=== PATIENT | male | born 1975 | race Caucasian/White ===

== ENCOUNTER 2018-11-06 02:39 | Emergency (ER) | payer MEDICAID ==
[~2018-11-06] VITALS: Ht 185.4 cm; Wt 88.0 kg
[~2018-11-06 02:39] MED LIST: DIAZ-351 PO; ONDA4TAB12 PO
[2018-11-06 02:49] VITALS: BP 127/88
[2018-11-06] MEDS ORDERED: acetaminophen 325mg tablet PO ONE (03:10)
[2018-11-06] MEDS ORDERED: ibuprofen tablet 400 MG TABLET PO ONE (03:10)
[2018-11-06] MEDS ORDERED: sulfamethoxazole/trimethoprim DS (800/160mg) tablet PO ONE (03:10)
[2018-11-06] MEDS ORDERED: SULF1TAB49 PO (04:17)
== END 2018-11-06 04:23 | disposition home or self-care (01) ==
LOC: ER 02:40
DX: S80.811A Abrasion, right lower leg, initial encounter (principal); F12.90 Cannabis use, unspecified, uncomplicated; W22.8XXA Striking against or struck by other objects, initial encounter; Y93.89 Activity, other specified; Y92.89 Other specified places as the place of occurrence of the external cause; Y99.9 Unspecified external cause status
CPT/HCPCS: 73590; 99284

== ENCOUNTER 2019-07-07 23:16 | Emergency (ER) | payer MEDICAID ==
[~2019-07-07] VITALS: Ht 185.4 cm; Wt 100.0 kg
[2019-07-07 23:17] VITALS: BP 156/92
[2019-07-07] MEDS ORDERED: CEPH250T PO (23:31)
== END 2019-07-07 23:36 | disposition home or self-care (01) ==
LOC: ER 23:16
DX: L03.113 Cellulitis of right upper limb (principal); F12.90 Cannabis use, unspecified, uncomplicated; Z79.2 Long term (current) use of antibiotics; Z79.899 Other long term (current) drug therapy
CPT/HCPCS: 99283

== ENCOUNTER 2020-10-18 17:42 | Emergency (ER) | payer MEDICAID ==
[~2020-10-18] VITALS: Ht 185.4 cm; Wt 101.5 kg
[2020-10-18] MEDS ORDERED: SULF1TAB49 PO (18:46)
[2020-10-18] MEDS ORDERED: CEPH-585 PO (18:46)
[2020-10-18] MEDS ORDERED: sulfamethoxazole/trimethoprim DS (800/160mg) tablet PO ONE (18:50)
[2020-10-18 19:13] VITALS: BP 119/64
== END 2020-10-18 19:15 | disposition home or self-care (01) ==
LOC: ER 17:43
DX: L02.413 Cutaneous abscess of right upper limb (principal); F12.90 Cannabis use, unspecified, uncomplicated; Z72.89 Other problems related to lifestyle; Z79.899 Other long term (current) drug therapy
CPT/HCPCS: 73110; 99283

== ENCOUNTER 2021-01-08 09:17 | Emergency (ER) | payer MEDICAID ==
[~2021-01-08] VITALS: Ht 185.4 cm; Wt 102.0 kg
[~2021-01-08 09:17] MED LIST changes: +CEPH-585 PO
[2021-01-08 09:33] VITALS: BP 116/71
[2021-01-08] MEDS ORDERED: LIDOcaine 1% W/epiNEPHrine 1:100,000 20ml vial SQ ONE (11:45)
--- NOTE | 2021-01-08 13:05 | NUR ---
dr hinojosa at [facility] doing the lac repair.
== END 2021-01-08 13:51 | disposition home or self-care (01) ==
LOC: ER 09:18
DX: S71.112A Laceration without foreign body, left thigh, initial encounter (principal); F12.90 Cannabis use, unspecified, uncomplicated; Z72.89 Other problems related to lifestyle; Z90.5 Acquired absence of kidney; Z79.2 Long term (current) use of antibiotics; Z79.899 Other long term (current) drug therapy; W26.0XXA Contact with knife, initial encounter; Y93.89 Activity, other specified; Y92.89 Other specified places as the place of occurrence of the external cause; Y99.8 Other external cause status
CPT/HCPCS: 12001; 73552; 99283

== ENCOUNTER 2021-03-16 19:00 | Emergency (ER) | payer MEDICAID ==
[~2021-03-16] VITALS: Ht 185.4 cm; Wt 104.5 kg
--- NOTE | 2021-03-16 19:22 | NUR ---
PT SEEN AND ASSESSED PRIOR TO NURSE SIGN UP . AWAITING FOR VASULAR STUDY IN T2 . LABS DRAWN
[2021-03-16 19:38] LABS: BASOPHILS % (AUTO) 0.4 % (0-1); MEAN CORPUSCULAR VOLUME 88.4 FL (78-98)
[2021-03-16 19:40] LABS: EOSINOPHILS % (AUTO) 0.3 % (0-6); HEMOGLOBIN 16.2 g/dl (14.0-17.9); LYMPHOCYTES # (AUTO) 1.2 X10'3 (1.1-4.8); LYMPHOCYTES % (AUTO) 19.4 % (21-51); MEAN CORPUSCULAR HEMOGLOBIN 29.8 PG (27.0-31.0); MEAN CORPUSCULAR HGB CONC 33.8 g/dL (33.0-36.5); MONOCYTES % (AUTO) 16.4 % (2-12); NEUTROPHILS % (AUTO) 63.5 % (42-75); PLATELET COUNT 226 X10'3 (140-440); RED BLOOD COUNT 5.43 X10'6 (4.70-6.10); RED CELL DISTRIBUTION WIDTH 13.4 % (11.5-14.5); WHITE BLOOD COUNT 6.4 X10'3 (4.5-11.0)
--- NOTE | 2021-03-16 19:40 | NUR ---
EMT SNET TO ROOM BY CHRNATHAN TO HAVE PT CHANGE INTO A GOWN
[2021-03-16 19:43] LABS: ALANINE AMINOTRANSFERASE 32 U/L (12-78); ALBUMIN 3.7 G/DL (3.4-5.0); ALBUMIN/GLOBULIN RATIO 0.8 (1.1-1.5); ALKALINE PHOSPHATASE 96 IU/L (46-116); ANION GAP 8 (8-16); ASPARTATE AMINO TRANSFERASE 27 U/L (10-37); BILIRUBIN,TOTAL 0.3 MG/DL (0.1-1.0); BLOOD UREA NITROGEN 11 MG/DL (7-18); BUN/CREATININE RATIO 6.9 (5.4-32.0); CALCIUM 8.3 MG/DL (8.5-10.1); CHLORIDE 105 MMOL/L (99-107); CREATININE 1.59 MG/DL (0.60-1.10); GLUCOSE 94 MG/DL (70-104); SODIUM 140 MMOL/L (135-145); TOTAL CARBON DIOXIDE 27.5 MMOL/L (24-32); TOTAL PROTEIN 8.1 G/DL (6.4-8.2); eGFR 47 ML/MIN
[2021-03-16 19:46] LABS: POTASSIUM 4.2 MMOL/L (3.5-5.1)
[2021-03-16] MEDS ORDERED: CEPH250T PO (21:08)
--- NOTE | 2021-03-16 21:16 | NUR ---
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 PT DISCHARGED BY JOSE URBINA . THIS RECORDER REVIEWED DISCHARGE INSTRUCTIONS FOLLOW UP WITH PRIMARY MD AND PRESCIPRION FOR THE RIGHT LOWER EXTREMITY WOUND INFECTION NO QUESTIONS ASKED PT DISCHARGED HOME STEADY GAIT .
[2021-03-16 21:18] VITALS: BP 136/78
== END 2021-03-16 21:15 | disposition home or self-care (01) ==
LOC: ER 19:06
DX: R60.0 Localized edema (principal); F12.90 Cannabis use, unspecified, uncomplicated; Z72.89 Other problems related to lifestyle; Z79.2 Long term (current) use of antibiotics
CPT/HCPCS: 80053; 83880; 85025; 93971; 99284

== ENCOUNTER 2022-04-18 08:42 | Emergency (ER) | payer MEDICAID ==
[~2022-04-18] VITALS: Ht 185.4 cm; Wt 106.8 kg
[~2022-04-18 08:42] MED LIST changes: -CEPH-585 PO
[2022-04-18 08:45] VITALS: BP 105/78
[2022-04-18] MEDS ORDERED: TETanus/Pertussis (Acell)/Diphther VAC/PF (Tdap-Adult) 0.5ml syringe IMVAC ONE (09:55)
[2022-04-18] MEDS ORDERED: LIDOcaine 1% 30ml preserv. free vial IJ ONE (09:55)
[2022-04-18] MEDS ORDERED: oxyCODONE IR 5mg (immed. release) tablet PO ONE (10:05)
[2022-04-18] MEDS ORDERED: ondansetron 4mg rapidly disintigrating tab PO ONE (10:05)
[2022-04-18] MEDS ORDERED: DOXYCYCLINE 100MG CAPSULE PO STA (10:29)
[2022-04-18] MEDS ORDERED: cephalexin 500mg capsule PO ONE (10:30)
[2022-04-18 11:03] LABS: BASOPHILS % (AUTO) 0.5 % (0-1); EOSINOPHILS # (AUTO) 0.2 X10'3 (0-0.9); HEMATOCRIT 44.8 % (42.0-52.0); HEMOGLOBIN 15.2 g/dl (14.0-17.9); LYMPHOCYTES # (AUTO) 2.3 X10'3 (1.1-4.8); LYMPHOCYTES % (AUTO) 30.8 % (21-51); MEAN CORPUSCULAR HEMOGLOBIN 30.2 PG (27.0-31.0); MEAN CORPUSCULAR HGB CONC 33.8 g/dL (33.0-36.5); MEAN CORPUSCULAR VOLUME 89.2 FL (78-98); MEAN PLATELET VOLUME 7.3 FL (7.4-10.4); MONOCYTES # (AUTO) 0.8 X10'3 (0-0.9); MONOCYTES % (AUTO) 10.6 % (2-12); NEUTROPHILS # (AUTO) 4.1 X10'3 (1.8-7.7); NEUTROPHILS % (AUTO) 55.1 % (42-75); PLATELET COUNT 294 X10'3 (140-440); RED BLOOD COUNT 5.03 X10'6 (4.70-6.10); RED CELL DISTRIBUTION WIDTH 13.4 % (11.5-14.5); WHITE BLOOD COUNT 7.4 X10'3 (4.5-11.0)
[2022-04-18 11:16] LABS: ALANINE AMINOTRANSFERASE 24 U/L (12-78); ALBUMIN 3.5 G/DL (3.4-5.0); ALBUMIN/GLOBULIN RATIO 0.8 (1.1-1.5); ALKALINE PHOSPHATASE 86 IU/L (46-116); ANION GAP 6 (8-16); ASPARTATE AMINO TRANSFERASE 18 U/L (10-37); BILIRUBIN,TOTAL 0.4 MG/DL (0.1-1.0); BLOOD UREA NITROGEN 22 MG/DL (7-18); BUN/CREATININE RATIO 16.1 (5.4-32.0); CHLORIDE 103 MMOL/L (99-107); CREATININE 1.37 MG/DL (0.60-1.10); GLUCOSE 88 MG/DL (70-104); POTASSIUM 4.3 MMOL/L (3.5-5.1); SODIUM 136 MMOL/L (135-145); TOTAL CARBON DIOXIDE 26.8 MMOL/L (24-32); eGFR 56 ML/MIN
[2022-04-18] MEDS ORDERED: DOXY100C77 PO (11:54)
[2022-04-18] MEDS ORDERED: CEPH500C2 PO (11:54)
== END 2022-04-18 12:56 | disposition home or self-care (01) ==
LOC: ER 08:43
DX: M70.51 Other bursitis of knee, right knee (principal); Z79.2 Long term (current) use of antibiotics
CPT/HCPCS: 10060; 36415; 73564; 80053; 83605; 85025; 85651; 87070; 87077; 87186; 90471; 90715; 99284; A6449

== ENCOUNTER 2022-07-08 09:41 | Emergency (ER) | payer MEDICAID ==
[~2022-07-08] VITALS: Ht 185.4 cm; Wt 98.0 kg
[2022-07-08 09:56] VITALS: BP 120/83
== END 2022-07-08 19:42 | disposition left against medical advice (07) ==
LOC: ER 09:41
DX: M79.642 Pain in left hand (principal); Z53.21 Procedure and treatment not carried out due to patient leaving prior to being seen by health care provider
CPT/HCPCS: 73130

== ENCOUNTER 2025-02-18 19:15 | Emergency (ER) | payer MEDICAID ==
[~2025-02-18] VITALS: Ht 185.4 cm; Wt 67.4 kg
[~2025-02-18 19:15] MED LIST changes: +ONDA-243 PO; -ONDA4TAB12 PO
[2025-02-18 19:46] VITALS: BP 114/68; PULSE 94; RESP 15; TEMP 97.8; O2SAT 98
--- NOTE | 2025-02-18 20:19 | RADIOLOGY REPORT ---
CHEST RADIOGRAPH Indication: SEPSIS Technique: Single frontal view of the chest was obtained Comparison: None FINDINGS: Lines and Tubes: None Lungs: No focal consolidation. Pleura: No effusion. No pneumothorax. Cardiomediastinal contours: Unremarkable Bones: No acute osseous abnormality. IMPRESSION: 1. Normal chest radiograph.
[2025-02-18 20:37] LABS: MEAN PLATELET VOLUME 7.6 FL (7.4-10.4); RED CELL DISTRIBUTION WIDTH 13.7 % (11.5-14.5)
[2025-02-18 20:41] LABS: CREATININE 1.40 MG/DL (0.60-1.10); TOTAL CARBON DIOXIDE 23.8 MMOL/L (24-32); eCRCL 60 ML/MIN; eGFR 54 ML/MIN
--- NOTE | 2025-02-18 21:20 | RADIOLOGY REPORT ---
CLINICAL INDICATION: KNEE PAIN,LEFT TECHNIQUE: 4 views DI KNEE, COMP 4 VW MIN Comparison: KNEE, COMP 4 VW MIN on DOS: 04/18/22 FINDINGS/IMPRESSION: : There is no evidence of acute fracture or dislocation. No acute fracture, joint malalignment or effusion. No significant degenerative changes. Mild anterio r soft tissue swelling is suggested.
[2025-02-18] MEDS ORDERED: CEPH-585 PO (21:57)
[2025-02-18] MEDS ORDERED: SULF1TAB49 PO (21:57)
--- NOTE | 2025-02-18 21:58 | Physician Documentation ---
History of Present Illness ~ Chief Complaint: Knee Pain Stated Complaint: LEG PAIN Time Seen by MD: 21:53 OK to notify your PCP?: Yes Primary Medical Doctor: [facility] Source: patient Mode of Arrival: POV Exam Limitations: no limitations HPI 49-year-old male presents left knee pain, swelling, and redness, started a couple of days ago. He denies any fever or chills. He does have a history of MRSA cellulitis in the past. Tetanus witin 5 years: Yes (WITHIN LAST 5 YRS) Medication Reconciliation Allergies: Coded Allergies: No Known Allergies (Unverified , 10/18/20) Scheduled Cephalexin*Monohydrate* (Keflex*), 1 CAP PO Q6H Sulfamethoxazole/Trimethoprim (Bactrim Ds Tablet), 1 TAB PO Q12H Scheduled PRN Diazepam (Diazepam), 5-10 MG PO Q6H PRN PRN for pain ONDANSETRON ODT 4mg tablet (Ondansetron Odt), 1 TABLET PO Q6H PRN for nausea/vomiting Past Medical History Past Medical History: No Pertinent History Past Surgical History: noncontributory Other Past Surgical History: Unilateral nephrectomy Alcohol Use: Occasionally Drug Use: none Lives with: Family Lives In: Home Occupation: employed 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 HEENT: No injection, moist mucous membranes. Neck: Full range of motion. Respiratory: No respiratory distress, equal chest rise and fall. Chest: No accessory muscle use. Cardiovascular: Regular rate and rhythm. Gastrointestinal: Nondistended. Extremities: Normal range of motion, no deformity. Edema, induration and erythe ma and warmth to right knee, no open wound or drainage. No fluctuance of tissues. Neurologic: Oriented x4. Psychiatric: Normal mood and affect. Skin: Normal color, warm and dry. Progress Results/Orders Reviewed/noted all lab results: Yes Results/Orders Orders - TERESA WHITEHEAD [employer]PER[employer] MANAGER Knee, Complete (02/18/25 21:09) Completed Orders - TERESA WHITEHEAD [employer]PERATIONS MANAGER Knee, Complete (02/18/25 21:09) Cephalexin Capsule (Keflex Capsule) (02/18/25 22:00) Sulfamethox/Trimetho. Ds Tab (Septra Ds (02/18/25 22:00) Vital Signs 02/18/25 19:46 Temp 97.8 Pulse 94 Resp 15 B/P (MAP) 114/68 Pulse Ox 98 Laboratory Tests Test 02/18/25 20:24 White Blood Count 12.7 H Red Blood Count 5.54 Hemoglobin 16.5 Hematocrit 49.3 Mean Corpuscular Volume 88.9 Mean Corpuscular Hemoglobin 29.8 Mean Corpuscular Hemoglobin Concent 33.5 Red Cell Distribution Width 13.7 Platelet Count 328 Mean Platelet Volume 7.6 Neutrophils (%) (Auto) 59.7 Lymphocytes (%) (Auto) 29.2 Monocytes (%) (Auto) 9.5 Eosinophils (%) (Auto) 1.1 Basophils (%) (Auto) 0.5 Neutrophils # (Auto) 7.6 Lymphocytes # (Auto) 3.7 Monocytes # (Auto) 1.2 H Eosinophils # (Auto) 0.1 Basophils # (Auto) 0.1 CBC Comment Sodium Level 135 Potassium Level 3.8 Chloride Level 102 Carbon Dioxide Level 23.8 L Anion Gap 9 Blood Urea Nitrogen 17 Creatinine 1.40 H Estimated GFR/1.73 m2 54 BUN/Creatinine Ratio 12.1 Glucose Level 85 Lactic Acid Level 1.6 Calcium Level 9.4 Albumin 3.9 Procalcitonin < 0.05 Chemistry Comments Microbiology Date/Time Source Procedure Growth Status 02/18/25 20:24 Blood Hand Right Blood Culture - Preliminary NEGATIVE (LESS THAN 24 HOURS) Resulted EKG/XRAY/CT/US/VASC/MRI Chest X-Ray : Additional Comments Chest x-ray: as interpreted by me; no large effusion, no large infiltrate, normal mediastinum. Bone/Soft Tissue X-Ray (Ext.) : Additional Comment Left knee x-ray as interpreted by me; no joint effusion, no acute fracture, no dislocation, or foreign body. Medical Decision Making Additional info obtained from: old records Findings 49-year-old male with left knee pain, warmth, redness and swelling. His x-ray was positive for some soft tissue swelling but negative for acute fracture or joint effusion. I am not concerned about a septic joint or gout at this time. A sepsis workup was initiated while the patient was in triage and he does have a slight elevation to his WBC count but his procalcitonin was normal and he is afebrile and and not tachycardic. Has a history of MRSA infection so I treated him with Bactrim and Keflex. He was given strict return and follow up instructions. His physical exam did not indicate the need for any incision and drainage. We will knee had full range motion of the knee and was able to ambulate well. We discussed he can use Tylenol or ibuprofen for pain relief. Knee Diff Dx:Considerations: Include: Arthritis, Contusion, Gout, Hematoma, Men iscus injury, Neurovascular injury, Open fracture, Septic Departure Disposition: 01 HOME / SELF CARE / HOMELESS Impression: Primary Impression: Knee pain Additional Impression: Cellulitis of knee, left Condition: Stable Discharge Instructions: Cellulitis, Adult, [id number] Additional Instructions: Take all antibiotics as prescribed. Follow up with her primary care provider in the next week and return back here for any new or worsening symptoms. Referrals: NO PRIMARY CARE PROVIDER (PCP) Prescriptions Cephalexin*Monohydrate* (Keflex*) 500 Mg Capsule 1 CAP PO Q6H for 10 Days, #40 CAP Prov: TERESA WHITEHEAD 02/18/25 Sulfamethoxazole/Trimethoprim (Bactrim Ds Tablet) 800 Mg-160 Mg Tablet 1 TAB PO Q12H for 10 Days, #20 TAB Prov: TERESA WHITEHEAD 02/18/25 Education Educated: Patient Educated regarding: diagnosis, treatment, prognosis, need for follow up Additional Comment Medical Screen Exam This patient recieved a medical screening examination. After reviewing the individual's medical complaints with presenting symptoms and performing an appropriate physical examination, it was determined that no immediate life- threatening emergency medical condition is present. This individual is also not a women having contractions. Signature Scribe Signature: . Attestation: Scribed for Teresa Whitehead by Teresa Bradford NP . 02/19/25 00:11 Parts of this note were created using [employer] voice recognition software program. While efforts were made to correct any mistakes made by this voice recognition software program, nonsensical phrases may remain in this note. In addition, there may be errors and syntax, grammar, content and spelling. TERESA WHITEHEAD [facility] Feb 18, 2025 21:58
[2025-02-18] MEDS ORDERED: sulfamethoxazole/trimethoprim DS (800/160mg) tablet PO ONE (22:00)
== END 2025-02-18 22:16 | disposition home or self-care (01) ==
LOC: ER 19:16
DX: L03.116 Cellulitis of left lower limb (principal); Z79.899 Other long term (current) drug therapy; Z72.89 Other problems related to lifestyle
CPT/HCPCS: 36415; 71045; 73564; 80048; 83605; 84145; 85025; 87040; 99284